=== PATIENT | female | born 1970 | race Caucasian/White ===

== ENCOUNTER → 2020-10-15 | Outpatient (CLI) | payer BC ==
[2020-10-16 13:09] LABS: RHEUMATOID ARTHRITIS FACTOR <10.0 IU/mL (0.0-13.9)
[2020-10-16 23:07] LABS: CCP ANTIBODIES IGG/IGA 5 units (0-19)
== END ==
LOC: LAB 11:56
PROVIDERS: Nurse Practitioner Family
DX: M25.562 Pain in left knee (principal); M25.50 Pain in unspecified joint; R76.8 Other specified abnormal immunological findings in serum; D89.9 Disorder involving the immune mechanism, unspecified; M25.862 Other specified joint disorders, left knee; M25.861 Other specified joint disorders, right knee; M25.761 Osteophyte, right knee
CPT/HCPCS: 36415; 73565; 81001; 82570; 83520; 84156; 85652; 86140; 86200; 86431